=== PATIENT | female | born 1980 | race African-American/Black ===

== ENCOUNTER 2018-01-30 08:54 | Emergency (ER) | payer OTHER ==
[~2018-01-30] VITALS: Ht 160 cm; Wt 90.7 kg
[~2018-01-30 08:54] MED LIST: IBUPROFEN 800800 MG PO; NAPROSYN500 MG PO; NOHOMEMEDICATIONS; NORCO 5-325 TA1 EACH PO; PREDNISONE50 MG PO
[2018-01-30] MEDS ORDERED: MOBIC15 MG PO (09:32)
[2018-01-30] MEDS ORDERED: VALIUM5 MG PO (09:32)
[2018-01-30] MEDS ORDERED: HYDROCODONE-AP1 EAC6 PO (09:32)
[2018-01-30 10:30] VITALS: BP 116/73
== END 2018-01-30 15:17 | disposition home or self-care (01) ==
LOC: ER 08:54
DX: S39.012A Strain of muscle, fascia and tendon of lower back, initial encounter (principal); X58.XXXA Exposure to other specified factors, initial encounter; Y92.89 Other specified places as the place of occurrence of the external cause; Y93.89 Activity, other specified; Y99.8 Other external cause status

== ENCOUNTER 2018-10-19 21:00 | Emergency (ER) | payer OTHER ==
[~2018-10-19] VITALS: Ht 157.5 cm; Wt 99.8 kg
[~2018-10-19 21:00] MED LIST changes: +HYDROCODONE-AP1 EAC6 PO; +MOBIC15 MG PO; +VALIUM5 MG PO
[2018-10-19] MEDS ORDERED: EAR WAX REMOVAL15 ML OTIC (22:49)
[2018-10-19 23:01] VITALS: BP 125/77
== END 2018-10-19 23:01 | disposition home or self-care (01) ==
LOC: ER 21:00
DX: H61.22 Impacted cerumen, left ear (principal)